=== PATIENT | female | born 1940 | race Caucasian/White ===

== ENCOUNTER 2020-02-15 15:30 | Emergency (ER) | payer OTHER ==
[~2020-02-15] VITALS: Ht 162.6 cm; Wt 63.5 kg
[~2020-02-15 15:30] MED LIST: ASPI81EC PO; Antivert25 MG PO; BENZ100A PO; CALCAVITD PO; CHOL10002 PO; CYCL10 PO; DIAZ2 PO; FISH1000; FLAX PO; HYDACE5 PO; HYDACE5325 PO; IBUP800 PO; LISI5 PO; MAGCHL64ER; METPHE20ER PO; NAPR500 PO; PROM25 PO; Prednisone20 MG PO; Zofran Odt4 MG SL; [UNRECOGNIZED DRUG - REMARK] PO
[2020-02-15] MEDS ORDERED: Voltaren100 GM TOP (19:27)
== END 2020-02-15 19:48 | disposition home or self-care (01) ==
LOC: ER 15:30
DX: M25.562 Pain in left knee (principal); I10 Essential (primary) hypertension; E11.9 Type 2 diabetes mellitus without complications; Z88.1 Allergy status to other antibiotic agents; Z88.8 Allergy status to other drugs, medicaments and biological substances; Z79.82 Long term (current) use of aspirin; Z79.899 Other long term (current) drug therapy
CPT/HCPCS: 93971; 99283-25

== ENCOUNTER 2020-04-02 11:35 | Emergency (ER) | payer OTHER ==
[~2020-04-02] VITALS: Ht 162.6 cm; Wt 60.8 kg
[~2020-04-02 11:35] MED LIST changes: +Voltaren100 GM TOP
[2020-04-02] MEDS ORDERED: Norco 5-325 Ta1 EACH PO (13:36)
== END 2020-04-02 13:58 | disposition home or self-care (01) ==
LOC: ER 11:35
DX: M25.552 Pain in left hip (principal); M25.572 Pain in left ankle and joints of left foot; Z88.0 Allergy status to penicillin; Z88.8 Allergy status to other drugs, medicaments and biological substances; Z79.82 Long term (current) use of aspirin; Z79.899 Other long term (current) drug therapy; I10 Essential (primary) hypertension; E11.9 Type 2 diabetes mellitus without complications
CPT/HCPCS: 73502; 73610; 99283-25; A9270-GY

== ENCOUNTER → 2020-10-17 | Outpatient (CLI) | payer OTHER ==
[~2020-10-17] MED LIST changes: +GABA300 PO; +HYDCHL25; +Norco 5-325 Ta1 EACH PO
[2020-10-17 11:56] LABS: Microalb/Creat Ratio UR, Rand Unable to Calculate mg/g (0.000-30.000); Microalbumin, Random Urine <5.000 mg/L (0.000-20.000)
== END | disposition home or self-care (01) ==
LOC: LAB SHORT 09:01 → LAB 09:01
PROVIDERS: Hospitalist
DX: I10 Essential (primary) hypertension (principal)
CPT/HCPCS: 82043; 82570

== ENCOUNTER 2021-01-02 12:12 | Day surgery (SDC) | payer OTHER ==
[~2021-01-02] VITALS: Ht 162.6 cm; Wt 59.1 kg
[~2021-01-02 12:12] MED LIST changes: -GABA300 PO; -HYDCHL25
[2021-01-02] MEDS ORDERED: GABA300 PO (12:41)
[2021-01-02] MEDS ORDERED: HYDCHL25 (12:43)
== END 2021-01-02 14:27 | disposition home or self-care (01) ==
LOC: ORSCSDS 12:12
PROVIDERS: Surgery
PROC: 0DBM8ZX Excision of Descending Colon, Via Natural or Artificial Opening Endoscopic, Diagnostic (ICD-10-PCS; principal; 2021-01-02 13:45)
DX: R19.4 Change in bowel habit (principal); Z86.010 Personal history of colon polyps; K63.5 Polyp of colon; E11.9 Type 2 diabetes mellitus without complications; G47.33 Obstructive sleep apnea (adult) (pediatric); I10 Essential (primary) hypertension; E78.5 Hyperlipidemia, unspecified; Z79.899 Other long term (current) drug therapy
CPT/HCPCS: 82947; 88305; J2704; J7120

== ENCOUNTER 2024-03-19 21:28 | Emergency (ER) | payer OTHER ==
[~2024-03-19] VITALS: Ht 162.6 cm; Wt 63.5 kg
[~2024-03-19 21:28] MED LIST changes: +GABA300 PO; +HYDCHL25
[2024-03-19 21:54] LABS: BASOPHILS ABSOLUTE AUTO 0.04 K/mm3 (0.00-0.23); BASOPHILS PERCENT AUTO 1 % (0-2); EOSINOPHILS ABSOLUTE AUTO 0.01 K/mm3 (0.00-0.68); EOSINOPHILS PERCENT AUTO 0 % (0-6); Hematocrit 37.9 % (33.0-51.0); Hemoglobin 12.8 g/dL (11.5-16.0); IMMATURE GRAN ABSOLUTE AUTO 0.03 K/mm3 (0.00-0.10); IMMATURE GRAN PERCENT AUTO 0 % (0-1); LYMPHOCYTES ABSOLUTE AUTO 0.96 K/mm3 (0.84-5.20); LYMPHOCYTES PERCENT AUTO 13 % (21-46); MONOCYTES ABSOLUTE AUTO 0.87 K/mm3 (0.16-1.47); MONOCYTES PERCENT AUTO 12 % (4-13); Mean Corpuscular HGB Conc 33.8 g/dL (31.5-36.5); Mean Corpuscular Volume 89 fL (80-100); Mean Platelet Volume 10.4 fL (9.1-12.4); NEUTROPHILS ABSOLUTE AUTO 5.57 K/mm3 (1.96-9.15); NEUTROPHILS PERCENT AUTO 75 % (41-73); Platelet Count 162 K/mm3 (150-400); RDW Coefficient Variation 13.2 % (11.7-14.2); RDW Standard Deviation 43.4 fL (35.1-46.3); Red Blood Cell Count 4.26 M/mm3 (3.80-5.20); White Blood Cell Count 7.48 K/mm3 (4.00-11.30)
[2024-03-19 22:15] LABS: Albumin, Blood 3.9 g/dL (3.4-5.0); Bilirubin, Total 0.5 mg/dL (0.1-1.0); Bun/Creatinine Ratio 17.4 (12.0-20.0); Calcium, Blood 8.8 mg/dL (8.5-10.1); Creatinine, Blood 0.92 mg/dL (0.40-1.00); Potassium, Blood 3.4 mmol/L (3.5-5.5); Total Protein, Blood 7.9 g/dL (6.4-8.2)
[2024-03-19] MEDS ORDERED: Acetaminophen 325 MG TABLET PO ONE (23:00)
[2024-03-19] MEDS ORDERED: ONDA4ODT MM (23:30)
[2024-03-20 00:16] VITALS: BP 108/79
== END 2024-03-20 00:19 | disposition home or self-care (01) ==
LOC: ER 21:28
PROVIDERS: Student in an Organized Health Care Education/Training Program
DX: U07.1 COVID-19 (principal); I10 Essential (primary) hypertension; E11.9 Type 2 diabetes mellitus without complications; Z79.82 Long term (current) use of aspirin; Z79.899 Other long term (current) drug therapy; Z88.0 Allergy status to penicillin; Z88.1 Allergy status to other antibiotic agents
CPT/HCPCS: 71046; 80053; 85025; 93005; 93010; 99285-25; A9270

== ENCOUNTER 2024-09-14 11:34 | Emergency (ER) | payer OTHER ==
[~2024-09-14] VITALS: Ht 162.6 cm; Wt 63.5 kg
[~2024-09-14 11:34] MED LIST changes: +ONDA4ODT MM
[2024-09-14 12:34] VITALS: BP 165/66
== END 2024-09-14 15:06 | disposition home or self-care (01) ==
LOC: ER 11:34
DX: L02.512 Cutaneous abscess of left hand (principal); Z59.89 Other problems related to housing and economic circumstances; I10 Essential (primary) hypertension; E11.9 Type 2 diabetes mellitus without complications; Z88.1 Allergy status to other antibiotic agents
CPT/HCPCS: 99282

== ENCOUNTER 2024-10-19 09:04 | Observation (INO) | payer OTHER ==
[~2024-10-19] VITALS: Ht 162.6 cm; Wt 63.5 kg
[2024-10-19] VITALS (13 sets, daily range): BP systolic 113–145; BP diastolic 46–95
[2024-10-19 10:18] LABS: BASOPHILS ABSOLUTE AUTO 0.05 K/mm3 (0.00-0.23); BASOPHILS PERCENT AUTO 1 % (0-2); EOSINOPHILS ABSOLUTE AUTO 0.18 K/mm3 (0.00-0.68); EOSINOPHILS PERCENT AUTO 2 % (0-6); Hematocrit 38.4 % (33.0-51.0); Hemoglobin 13.1 g/dL (11.5-16.0); IMMATURE GRAN ABSOLUTE AUTO 0.02 K/mm3 (0.00-0.10); IMMATURE GRAN PERCENT AUTO 0 % (0-1); LYMPHOCYTES ABSOLUTE AUTO 1.43 K/mm3 (0.84-5.20); LYMPHOCYTES PERCENT AUTO 15 % (21-46); MONOCYTES ABSOLUTE AUTO 0.78 K/mm3 (0.16-1.47); MONOCYTES PERCENT AUTO 8 % (4-13); Mean Corpuscular HGB 30.6 pg (26.0-34.0); Mean Corpuscular HGB Conc 34.1 g/dL (31.5-36.5); Mean Corpuscular Volume 90 fL (80-100); Mean Platelet Volume 9.9 fL (9.1-12.4); NEUTROPHILS ABSOLUTE AUTO 6.99 K/mm3 (1.96-9.15); NEUTROPHILS PERCENT AUTO 74 % (41-73); Platelet Count 178 K/mm3 (150-400); RDW Coefficient Variation 12.9 % (11.7-14.2); RDW Standard Deviation 42.4 fL (35.1-46.3); Red Blood Cell Count 4.28 M/mm3 (3.80-5.20); White Blood Cell Count 9.45 K/mm3 (4.00-11.30)
[2024-10-19 10:46] LABS: Albumin, Blood 3.8 g/dL (3.4-5.0); Bilirubin, Total 0.4 mg/dL (0.1-1.0); Bun/Creatinine Ratio 17.3 (12.0-20.0); Calcium, Blood 9.7 mg/dL (8.5-10.1); Creatinine, Blood 0.92 mg/dL (0.40-1.00); Globulin, Blood 3.9 g/dL (2.2-4.0); Potassium, Blood 3.9 mmol/L (3.5-5.5); Total Protein, Blood 7.7 g/dL (6.4-8.2)
[2024-10-19] MEDS ORDERED: MetroNIDAZOLE 500MG/NS 100 ml 100 ML IV ONE (12:05)
[2024-10-19] MEDS ORDERED: CefTRIAXone Sodium 1,000 MG in NS 100 ML IV ONE (12:05)
[2024-10-19] MEDS ORDERED: NS 1,000 ML IV SCH (12:05)
[2024-10-19] MEDS ORDERED: Bupivacaine 0.5% HCl 5 MG/ML 30MLVIAL ONE (12:10)
[2024-10-19] MEDS ORDERED: Lactated Ringer's 1,000 ML IV SCH (12:10)
[2024-10-19 12:20] LABS: Source, Urine Clean Catch
[2024-10-19 12:26] LABS: Appearance, Urine Hazy (Clear); Bilirubin, Urine Neg (Neg); Blood, Urine Neg (Neg); Glucose Qualitative, Urine Neg (Neg); Ketones, Urine Neg (Neg); Leukocyte Esterase, Urine 1+ (Neg); Nitrite, Urine Neg (Neg); Protein, Urine Neg (Neg); Urobilinogen, Urine NORM (Normal)
--- NOTE | 2024-10-19 12:37 | NUR ---
PT HAS 20G IV IN R AC THAT SHOWS NO SIGNS OF INFILTRATION. NO SWELLING, DRAINAGE, REDNESS NOTED.
[2024-10-19 12:39] LABS: Color, Urine Pale Yellow (P-Yellow)
[2024-10-19 12:51] LABS: Amorphous Light (0-Heavy); Red Blood Cells, Urine 0-2 /hpf (0-2); White Blood Cells, Urine 0-2 /hpf (0-5)
[2024-10-19 12:53] LABS: Squamous Epithelial Cells Rare /hpf (Few)
[2024-10-19 12:54] LABS: Bacteria Few /hpf
[2024-10-19] MEDS ORDERED: FentaNYL Citrate 50 MCG/ML 2 ML Injection ONE (13:02)
[2024-10-19] MEDS ORDERED: propofoL 20 ML IV ONE (13:02)
[2024-10-19] MEDS ORDERED: Dexamethasone Sod Phos 10 MG/ML 1ML VIAL ONE (13:03)
[2024-10-19] MEDS ORDERED: Ondansetron HCl 2 MG / ML 2ML Vial ONE (13:03)
[2024-10-19] MEDS ORDERED: Rocuronium Bromide 10 MG/ML 5ML Injection IV ONE (13:03)
[2024-10-19] MEDS ORDERED: Albuterol 2.5 MG/3 ML VIAL INH PRN (13:25)
[2024-10-19] MEDS ORDERED: Ondansetron HCl 2 MG / ML 2ML Vial IV PRN (13:25)
[2024-10-19] MEDS ORDERED: FentaNYL Citrate 50 MCG/ML 2 ML Injection IV PRN ×2 (13:25→13:30)
[2024-10-19] MEDS ORDERED: Labetalol HCL 5 MG/ML 4ML Injection (Single Dose) IV PRN (13:25)
[2024-10-19] MEDS ORDERED: HYDROmorphone HCl/Pf 1MG SYR IV PRN ×2 (13:25)
[2024-10-19] MEDS ORDERED: Ketorolac Tromethamine 30mg Vial ONE (13:28)
[2024-10-19] MEDS ORDERED: Sugammadex Sodium 200 MG/2ML SDV (100 MG/ML) ONE (13:49)
[2024-10-19] MEDS ORDERED: MetroNIDAZOLE 500MG/NS 100 ml 100 ML IV SCH (20:00)
[2024-10-20 04:14] VITALS: BP 119/54
--- NOTE | 2024-10-20 04:57 | NUR ---
SHIFT SUMMARY PETE WAS ALERT FULLY ORIENTED AND INDEPENDENT IN ROOM THIS SHIFT. PT LAP SITES ARE C.D.I. PT DENIES PAIN. UNEVENTFUL SHIFT. PT SLEPT MOSTLY WITHOUT ISSUE. NO ACUTE EVENTS, NO NOTED CHANGES TO PT CONDITION.
[2024-10-20 07:00] VITALS: BP 115/52
[2024-10-20] MEDS ORDERED: Norco 5-325 Ta1 EACH PO (07:55)
[2024-10-20 08:38] VITALS: BP 126/48
--- NOTE | 2024-10-20 09:00 | NUR ---
[facility] CALLED AND THIS RN VERIFIED THAT PT IS ON SCHEDULE TO HAVE ECHO COMPLETED TODAY
--- NOTE | 2024-10-20 09:04 | NUR ---
DISCHARGE: PT IS A/O, VSS. SURGICAL SITES WNL, PT IS AMBULATING IN ROOM AND VOIDING. DR. RIVERS IN ROOM THIS MORNING AND DC ORDERS ENTERED. DC PACKET PRINTED AND PT EDUCATED BY INSTRUMENTATION TECHNOLOGIST ARIKA.
== END 2024-10-20 09:04 | disposition home or self-care (01) ==
LOC: ER 09:04 → SURS 09:05 → ER 12:39 → SURS 12:39
PROVIDERS: Student in an Organized Health Care Education/Training Program; ADMIT Surgery
PROC: 0DTJ0ZZ Resection of Appendix, Open Approach (ICD-10-PCS; principal; 2024-10-19 12:30)
DX: K35.33 Acute appendicitis with perforation, localized peritonitis, and gangrene, with abscess (principal); I10 Essential (primary) hypertension; E11.9 Type 2 diabetes mellitus without complications; Z79.899 Other long term (current) drug therapy; Z79.82 Long term (current) use of aspirin
CPT/HCPCS: 74177; 80053; 81001; 83690; 85025; 87086; 88304; 94760; 99285-25; J1100; J1885; J2405; J2704; J3010; J7120; Q9967

== ENCOUNTER 2025-05-24 13:31 | Emergency (ER) | payer OTHER ==
[~2025-05-24] VITALS: Ht 162.6 cm; Wt 62.1 kg
[2025-05-24] MEDS ORDERED: ROSUVASTATIN CAL5 MG PO (13:46)
[2025-05-24] MEDS ORDERED: NS 1,000 ML IV SCH (13:50)
[2025-05-24] MEDS ORDERED: Ondansetron HCl 2 MG / ML 2ML Vial IV ONE (13:50)
[2025-05-24 14:14] LABS: BASOPHILS ABSOLUTE AUTO 0.06 K/mm3 (0.00-0.23); BASOPHILS PERCENT AUTO 1 % (0-2); EOSINOPHILS ABSOLUTE AUTO 0.15 K/mm3 (0.00-0.68); EOSINOPHILS PERCENT AUTO 2 % (0-6); Hematocrit 40.9 % (33.0-51.0); Hemoglobin 14.2 g/dL (11.5-16.0); IMMATURE GRAN ABSOLUTE AUTO 0.02 K/mm3 (0.00-0.10); IMMATURE GRAN PERCENT AUTO 0 % (0-1); LYMPHOCYTES ABSOLUTE AUTO 2.04 K/mm3 (0.84-5.20); LYMPHOCYTES PERCENT AUTO 24 % (21-46); MONOCYTES ABSOLUTE AUTO 0.68 K/mm3 (0.16-1.47); MONOCYTES PERCENT AUTO 8 % (4-13); Mean Corpuscular HGB Conc 34.7 g/dL (31.5-36.5); Mean Corpuscular Volume 90 fL (80-100); NEUTROPHILS ABSOLUTE AUTO 5.70 K/mm3 (1.96-9.15); NEUTROPHILS PERCENT AUTO 66 % (41-73); NRBC ABSOLUTE 0.00 K/mm3 (0.00-0.02); NRBC Auto 0.0 /100 WBC (0.0-0.2); Platelet Count 191 K/mm3 (150-400); RDW Coefficient Variation 13.2 % (11.7-14.2); RDW Standard Deviation 43.6 fL (35.1-46.3)
[2025-05-24 14:50] LABS: Alanine Aminotransfer (ALT/SGP 24.0 U/L (12-78); Albumin, Blood 3.9 g/dL (3.4-5.0); Albumin/Globulin Ratio 1.1 (0.8-1.8); Anion Gap 9.0 mmol/L (3-11); Aspartate Aminotrans (AST/SGOT 23.0 U/L (12-37); Bilirubin, Total 0.7 mg/dL (0.1-1.0); Blood Urea Nitrogen 14.0 mg/dL (8-24); CO2, Blood 23.0 mmol/L (21-32); Calcium, Blood 9.5 mg/dL (8.5-10.1); Chloride, Blood 107.0 mmol/L (98-108); Creatinine, Blood 0.72 mg/dL (0.40-1.00); Globulin, Blood 3.7 g/dL (2.2-4.0); Glucose, Blood 174.0 mg/dL (70-99); Potassium, Blood 3.2 mmol/L (3.5-5.5); Sodium, Blood 136.0 mmol/L (136-145); Total Protein, Blood 7.6 g/dL (6.4-8.2)
[2025-05-24] MEDS ORDERED: PROM25 PO (15:17)
[2025-05-24 16:00] VITALS: BP 149/70
== END 2025-05-24 16:21 | disposition home or self-care (01) ==
LOC: ER 13:31
PROVIDERS: Emergency Medicine
DX: E87.6 Hypokalemia (principal); E87.8 Other disorders of electrolyte and fluid balance, not elsewhere classified; I10 Essential (primary) hypertension; E11.9 Type 2 diabetes mellitus without complications; E78.5 Hyperlipidemia, unspecified; Z79.82 Long term (current) use of aspirin; Z79.899 Other long term (current) drug therapy; Z88.0 Allergy status to penicillin; Z88.1 Allergy status to other antibiotic agents
CPT/HCPCS: 80053; 82550; 83690; 85025; 93005; 93010; 96361; 96374; 99284-25; A9270; J2405; J7030